=== PATIENT | female | born 1995 | race African-American/Black ===

== ENCOUNTER 2019-07-31 15:12 | Emergency (ER) | payer MEDICAID ==
[~2019-07-31] VITALS: Ht 162.6 cm; Wt 95.3 kg
[2019-07-31 15:21] VITALS: BP 140/90
--- NOTE | 2019-07-31 16:14 | NUR ---
PT AMBULATED TO BED
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
[2019-07-31] MEDS ORDERED: predniSONE 20 MG TAB PO ONE (17:15)
[2019-07-31 17:48] VITALS: BP 120/75
--- NOTE | 2019-07-31 17:49 | NUR ---
Patient discharged with v/s stable. Written and verbal after care instructions given and explained. Patient alert, oriented and verbalized understanding of instructions. Ambulatory with steady gait. All questions addressed prior to discharge. ID band removed. Patient advised to follow up with PMD. Rx of LORATADINE, PREDNISONE given. Patient educated on indication of medication including possible reaction and side effects. Opportunity to ask questions provided and answered.
== END 2019-07-31 17:49 | disposition home or self-care (01) ==
LOC: MED 15:12
DX: R21 Rash and other nonspecific skin eruption (principal); R03.0 Elevated blood-pressure reading, without diagnosis of hypertension; J45.909 Unspecified asthma, uncomplicated
CPT/HCPCS: 99283; J7512